=== PATIENT | male | born 1955 | race Caucasian/White ===

== ENCOUNTER 2024-03-28 21:48 | Emergency (ER) | payer OTHER, SELFPAY ==
[2024-03-28 21:53] VITALS: BP 151/79; PULSE 71; RESP 16; TEMP 36.2; O2SAT 99; BMI 24.4
--- NOTE | 2024-03-28 21:58 | CRLHL7_ITS ---
For Patients: As a result of the Cures Act, medical imaging exams and procedure reports are released immediately into your electronic medical record. You may view this report before your referring provider. If you have questions, please contact your health care provider. INDICATION: Trauma. TECHNIQUE: Right forearm radiographs, 2 views. COMPARISON: None. FINDINGS: No acute fractures. The joint spaces are preserved. No significant soft tissue edema or radiopaque foreign bodies. IMPRESSION: No acute fractures. Dictated by Memo Berumen MD @ 03/28/2024 11:01:18 PM (Electronically Signed)
--- NOTE | 2024-03-28 22:02 | ED_ITS ---
HPI - Fall General Time Seen by Provider: 22:02 Date Seen: 03/28/24 Chief Complaint: Fall/Minor Trauma Stated Complaint: Got kick by a cow - R arm Time Seen by Provider: 03/28/24 22:02 Source: patient and RN notes reviewed Mode of arrival: ambulatory Limitations: no limitations History of Present Illness HPI Narrative: This 68-year-old male is coming in with right forearm injury. He was kicked by a cow on the dorsal surface the forearm, arm was pressed into an oak board on the volar surface. Denies any numbness tingling. Did try ice. He took 6 him mg of ibuprofen earlier this evening for arthritis. Nothing else was injured, did not fall to the ground, no loss of consciousness, was not hurt anywhere else or kicked anywhere else. Related Data Allergies Allergy/AdvReac Type Severity Reaction Status Date / Time No Known Drug Allergies Allergy Verified 03/28/24 21:53 Review of Systems Narrative: As per HPI. PFSH PFS Social History Smoking Status: Never smoker How often do you have a drink containing alcohol: 2-3 times a week AUDIT-C Alcohol total score: 3 Non-prescribed substance use: denies use Exam Const: Vital Signs, click to edit/add: Vital Signs - 24 hr 03/28/24 21:53 Temperature 97.2 F L Pulse Rate [Left P ulse Oximeter] 71 Respiratory Rate 16 Blood Pressure [Le ft Upper Arm] 151/79 H Pulse Oximetry 99 Oxygen Delivery Me thod Room Air Patient is alert, interactive, no apparent distress, ambulatory into the ED of his own accord. He has full flexion extension, supination pronation of his elbow. He has ecchymosis and bruising along the distal forearm on both sides. There is no open wound. The distal wrist and snuffbox are nontender. He can fully flex and extend his wrist, does get some pain in the dorsal forearm where the bruising is when he goes into dorsiflexion. 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 Neurovascular status is intact. There is some soft tissue swelling but it is not overly excessive at this time. Documenting provider has reviewed patient's vital signs: yes Course Course ED Course: Will obtain forearm x-rays to rule out underlying fracture. Will have staff get a new ice bag for him so he can continue much with ice and elevation. Reevaluation(s) Time of Reevaluation #1: 23:35 Reevaluation #1: Reviewed negative x-rays for fracture. Did review compartment syndrome. We reviewed that it is less likely in a forearm, but still need to watch for. He will use a sling for comfort. Did discuss taking his arm out of the sling to do some range of motion of his shoulder so he does not get frozen shoulder. Vital Signs Vital signs: Initial Vital Signs Temperature 97.2 F L 03/28/24 21:53 Temperature Source Temporal Artery Scan 03/28/24 21:53 Pulse Rate 71 03/28/24 21:53 Pulse Rhythm Regular 03/28/24 21:53 Respiratory Rate 16 03/28/24 21:53 Blood Pressure 151/79 H 03/28/24 21:53 Blood Pressure Mean 103 03/28/24 21:53 Blood Pressure Position Sitting 03/28/24 21:53 Pulse Oximetry 99 03/28/24 21:53 Oxygen Delivery Method Room Air 03/28/24 21:53 Vital Signs Temperature 97.2 F L 03/28/24 21:53 Pulse Rate 71 03/28/24 21:53 Respiratory Rate 16 03/28/24 21:53 Blood Pressure 151/79 H 03/28/24 21:53 Pulse Oximetry 99 03/28/24 21:53 Oxygen Delivery Method Room Air 03/28/24 21:53 Temperature 97.2 F L 03/28/24 21:53 Pulse Rate 71 03/28/24 21:53 Respiratory Rate 16 03/28/24 21:53 Blood Pressure 151/79 H 03/28/24 21:53 Pulse Oximetry 99 03/28/24 21:53 Oxygen Delivery Method Room Air 03/28/24 21:53 MDM - Fall Imaging Data XR forearm, right: Attestation: I have reviewed the pertinent imaging results. Radiologist's impression: Patient: RASHAUN TAVARES Facility:?[facility] Patient ID:?[id number] Site Patient ID:?[id number]. Site :?[id number] Study:?XRay-Extremity Right FOREARM-03/28/2024 10:34:43 PM Ordering Physician:Emily Alcazar Final Report: INDICATION: Trauma. TECHNIQUE: Right forearm radiographs, 2 views. COMPARISON: None. FINDINGS: No acute fractures. The joint spaces are preserved. No significant soft tissue edema or radiopaque foreign bodies. IMPRESSION: No acute fractures. Dictated by Memo Berumen MD @ 03/28/2024 11:01:18 PM (Electronic Signature) Discharge Plan Discharge Clinical Impression: Contusion of forearm, right Qualifiers: Encounter type: initial encounter Qualified Code(s): S50.11XA - Contusion of right forearm, initial encounter Patient Disposition: Home, Self-Care Condition: Stable Instructions: Contusion in Adults (ED) Additional Instructions: Use sling as needed for comfort. Need to ice and elevate this forearm as much as you are able to to help decrease the swelling, recommend doing this for at least the next 3-5 days. Can use Tylenol and ibuprofen per bottle directions as needed for pain. If you are having significant increase of swelling in this forearm and have associated numbness or tingling in the hand/forearm, are developing severe pain in the forearm or significant difficulty with range of motion, do need to be re-evaluated. Activity Level: Activity as Tolerated Follow Up/Referrals: Provider,Not a Local [Primary Care Provider] - Stand Alone Forms: [employer] Info Instructions
== END 2024-03-29 00:10 | disposition home or self-care (01) ==
PROVIDERS: Emergency Provider Family Medicine
DX: S50.11XA Contusion of right forearm, initial encounter (principal); W55.22XA Struck by cow, initial encounter
CPT/HCPCS: 73090; 99283